=== PATIENT | male | born 1985 | race African-American/Black ===

== ENCOUNTER → 2021-03-22 | Emergency (ER) | payer MEDICARE, OTHER ==
[~2021-03-22] VITALS: Ht 177.8 cm; Wt 80.7 kg
[~2021-03-22] MED LIST: HYDR-3972 PO; HYDROCODONE/APAP 5/325MG TABLET ONE; HYDROCODONE/APAP 5/325MG TABLET PO ONE; IBUP-1957 PO; IBUPROFEN 600 MG TABLET ONE; IBUPROFEN 600 MG TABLET PO ONE
--- NOTE | 2021-03-22 23:17 | NUR ---
BROUGHT TO CT
--- NOTE | 2021-03-23 | NUR ---
URINE COLLECTED AND SENT TO LAB
--- NOTE | 2021-03-23 00:50 | NUR ---
LAB CALLED TO FOLLOW UP ON TEST RESULTS
[2021-03-23 00:58] LABS: BILIRUBIN,URINE NEGATIVE (NEGATIVE); COLOR,URINE DARK YELLOW (YELLOW); LEUKOCYTE ESTERASE ,URINE NEGATIVE (NEGATIVE); NITRITE, URINE NEGATIVE (NEGATIVE); PROTEIN,URINE NEGATIVE (NEGATIVE); UGLUCOSE NEGATIVE (NEGATIVE); UROBILINOGEN,URINE 0.2 EU/dL (0.2)
[2021-03-23 01:12] LABS: BACTERIA,URINE None seen /HPF (None Seen); RBC,URINE 0-2 /HPF (0-2); SQUAMOUS EPITHELIAL CELL,UR Few /HPF (None Seen); WBC,URINE 0-2 /HPF (0-3)
[2021-03-23 01:13] LABS: CALCIUM OXALATE CRYSTALS,UR Many /HPF (None Seen)
--- NOTE | 2021-03-23 02:15 | NUR ---
Patient discharged to home in stable condition. Written and verbal after care instructions given. Patient verbalizes understanding of instruction.
[2021-03-23 02:16] VITALS: BP 140/80
== END | disposition home or self-care (01) ==
LOC: ER 22:32
DX: S39.012A Strain of muscle, fascia and tendon of lower back, initial encounter (principal); S80.01XA Contusion of right knee, initial encounter; S60.222A Contusion of left hand, initial encounter; V49.9XXA Car occupant (driver) (passenger) injured in unspecified traffic accident, initial encounter; Y93.89 Activity, other specified; Y92.410 Unspecified street and highway as the place of occurrence of the external cause; Y99.8 Other external cause status
CPT/HCPCS: 72131-TC; 73564-TC; 81001

== ENCOUNTER 2021-03-24 02:31 | Emergency (ER) | payer MEDICARE, OTHER ==
[~2021-03-24] VITALS: Ht 177.8 cm; Wt 79.4 kg
[~2021-03-24 02:31] MED LIST changes: -HYDROCODONE/APAP 5/325MG TABLET ONE; -HYDROCODONE/APAP 5/325MG TABLET PO ONE; -IBUPROFEN 600 MG TABLET ONE; -IBUPROFEN 600 MG TABLET PO ONE
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
[2021-03-24 05:07] VITALS: BP 124/86
--- NOTE | 2021-03-24 05:07 | NUR ---
MEDICALLY STABLE FOR D/C. Patient discharged to home in stable condition. Written and verbal after care instructions given. Patient verbalizes understanding of instruction.
== END 2021-03-24 05:09 | disposition home or self-care (01) ==
LOC: ER 02:31
DX: S06.0X0A Concussion without loss of consciousness, initial encounter (principal); S60.221A Contusion of right hand, initial encounter; S80.02XA Contusion of left knee, initial encounter; Z60.2 Problems related to living alone; V49.49XA Driver injured in collision with other motor vehicles in traffic accident, initial encounter; Y93.89 Activity, other specified; Y92.413 State road as the place of occurrence of the external cause; Y99.8 Other external cause status
CPT/HCPCS: 70450-TC; 72125-TC; 73130-TC; 73564-TC

== ENCOUNTER → 2021-05-30 | Emergency (ER) | payer MEDICARE, OTHER ==
[~2021-05-30] VITALS: Ht 177.8 cm; Wt 81.6 kg
[~2021-05-30] MED LIST changes: +PENICILLIN G BENZATHINE 2.4 MMU/4 ML ML IM ONE
--- NOTE | 2021-05-30 06:41 | NUR ---
TO ER BED 11. BIBSELF FROM HOME C/O SYPHYLLIS, TESTED 2 DAYS AGO. REQUESTING FOR ANTIBIOTICS. AWAITING MD OCHOA
[2021-05-30 07:11] VITALS: BP 122/73
--- NOTE | 2021-05-30 07:11 | NUR ---
Patient discharged to home in stable condition. Written and verbal after care instructions given. Patient verbalizes understanding of instruction.
== END | disposition home or self-care (01) ==
LOC: ER 05:30
DX: A53.9 Syphilis, unspecified (principal); Z60.2 Problems related to living alone
CPT/HCPCS: 96372; 99283; J0558

== ENCOUNTER 2021-07-25 11:53 | Emergency (ER) | payer MEDICARE, OTHER ==
[~2021-07-25] VITALS: Ht 177.8 cm; Wt 81.6 kg
[~2021-07-25 11:53] MED LIST changes: -PENICILLIN G BENZATHINE 2.4 MMU/4 ML ML IM ONE
--- NOTE | 2021-07-25 12:06 | NUR ---
TO ER BED 10, BIB SELF C/O SHARP CHEST PAIN AND L UPPER ABDOMINAL PAIN X 5 DAYS. AAOX3, BREATHING EVEN AND NON LABORED, CONNECTED TO MONITOR, AWAITING MD OCHOA
--- NOTE | 2021-07-25 12:10 | NUR ---
URINE COLLECTED AND SENT TO LAB
[2021-07-25] MEDS ORDERED: MAG HYDROX/AL HYDROX/SIMETH 30 ML UDC ONE (12:22)
[2021-07-25] MEDS ORDERED: PANTOPRAZOLE 40 MG VIAL ONE (12:22)
[2021-07-25] MEDS ORDERED: LIDOCAINE VISCOUS 2% UD 15 ML UDC ONE (12:23)
[2021-07-25] MEDS ORDERED: PANTOPRAZOLE 40 MG VIAL IV ONE (12:30)
[2021-07-25] MEDS ORDERED: MAG HYDROX/AL HYDROX/SIMETH 30 ML UDC PO ONE (12:30)
[2021-07-25] MEDS ORDERED: LIDOCAINE VISCOUS 2% UD 15 ML UDC MM ONE (12:30)
[2021-07-25 12:38] LABS: BASOPHILS % (AUTO) 0.4 % (0.0-2.0); CALCIUM, SERUM 8.3 mg/dL (8.5-10.1); CARBON DIOXIDE 26 mmol/L (21-32); CHLORIDE 106 mmol/L (98-107); EOSINOPHILS % (AUTO) 1.1 % (0.0-6.0); GLUCOSE 97 mg/dL (74-106); HEMATOCRIT 43 % (39-51); HEMOGLOBIN 14.5 g/dL (13.5-17.5); LYMPHOCYTES % (AUTO) 23.3 % (20.0-44.0); MEAN CORPUSCULAR HGB CONC 34 g/dl (31.0-36.0); MEAN CORPUSCULAR VOLUME 97 fL (80-96); MONOCYTES # (AUTO) 0.3 K/uL (0.1-1.30); MONOCYTES % (AUTO) 7.8 % (2.0-12.0); NEUTROPHILS % (AUTO) 67.4 % (43.0-81.0); PLATELET COUNT (AUTO) 233 K/uL (150-450); POTASSIUM 3.8 mmol/L (3.5-5.1); RED BLOOD CELL COUNT(AUTO) 4.44 MIL/uL (4.5-6.0); SODIUM SERUM 139 mmol/L (136-145); UREA NITROGEN, BLOOD 12 mg/dL (7-18); WHITE BLOOD COUNT (AUTO) 4.4 K/uL (4.3-11.0)
[2021-07-25 12:39] LABS: BILIRUBIN,URINE NEGATIVE (NEGATIVE); COLOR,URINE YELLOW (YELLOW); LEUKOCYTE ESTERASE ,URINE NEGATIVE (NEGATIVE); NITRITE, URINE NEGATIVE (NEGATIVE); PH,URINE 6.5 (5.0-8.0); PROTEIN,URINE NEGATIVE (NEGATIVE); UGLUCOSE NEGATIVE (NEGATIVE); UROBILINOGEN,URINE 0.2 EU/dL (0.2)
[2021-07-25 12:44] LABS: ALANINE AMINOTRANSFERASE 21 U/L (12-78); ALKALINE PHOSPHATASE 78 U/L (46-116); ASPARTATE AMINOTRANSFERASE 15 U/L (15-37); BILIRUBIN,DIRECT 0.2 mg/dL (0.0-0.2); BILIRUBIN,TOTAL 1.3 mg/dL (0.2-1.0); LIPASE 53 U/L (73-393); TOTAL PROTEIN, SERUM 7.3 g/dL (6.4-8.2)
[2021-07-25] MEDS ORDERED: PANT40TA2 PO (13:09)
--- NOTE | 2021-07-25 13:38 | NUR ---
TAKEN TO CT VIA ASHLEE
--- NOTE | 2021-07-25 14:24 | NUR ---
SS Note: SW was requested to speak with pt. regarding outpatient resources. Pt. Is a 35-year-old male who demonstrates adequate insight to the reason for hospitalization. Per pt., he presents to the ER for having multiple panic attacks. Pt. was oriented x3, alert, and cooperative. During interview, pt. was capable of following directions and appeared groomed. Pt.'s speech was at a normal rate and pt.'s mood was elevated. Pt. reported no hx of mental health, substance abuse, suicidal ideation, or homicidal ideation. Pt. denies auditory hallucinations, visual hallucinations, paranoia, or delusions. SW explored pt.'s living situation. Per pt., he lives alone [[address] [place] [address]]. Pt. has anxiety that started couple months ago due to personal issues. Per pt., his panic attacks have got worst this week. Pt. expressed that he wants resources regarding psychiatrist outpatient. Plan: SW provided available counseling/psychiatrist resources and pt. accepted. Resources Provided: Counseling--Outpatient Located Within [facility] [address], [facility] [place] [address] (Specializes in in-depth psychotherapy for emotional distress: anxiety, depression, interpersonal conflicts, life transitions, childhood abuse) [facility] [address] [place] [address] (Assist with solving problem marital difficulties, separation & divorce, aging parents, & grief, chronic & terminal illness) [facility] [address] [place] [address] (Deal with loss & grief, anxiety, marital difficulties) [facility] [address], [address] [place] [address] (Provide in-home mental services to people who are incapable of leaving their homes) [facility] [address] [facility] [address] [facility] [address] [place], [place] [id number] PSYCHIATRIC OUTPATIENT SERVICES [facility] Partial Hospitalization and Intensive Outpatient Program (Managed Care and [place] Only)[id number] [facility] [phone] [facility] Partial Hospitalization and Outpatient [id number] [place], [place] [phone] [facility] [id number] [place], [place] [phone] [facility] Partial Hospitalization and Outpatient [id number] [facility], [phone]
--- NOTE | 2021-07-25 15:39 | NUR ---
Patient discharged to home in stable condition. Written and verbal after care instructions given. Patient verbalizes understanding of instruction.
[2021-07-25 15:40] VITALS: BP 124/65
== END 2021-07-25 15:48 | disposition home or self-care (01) ==
LOC: ER 12:01
DX: R07.89 Other chest pain (principal); R10.13 Epigastric pain; Z60.2 Problems related to living alone; Z79.899 Other long term (current) drug therapy
CPT/HCPCS: 36415; 71045-TC; 76700-TC; 80048-TC; 80076-TC; 83690-TC; 84484-TC; 85025-TC; C9113

== ENCOUNTER 2022-11-14 06:07 | Emergency (ER) | payer MEDICARE, OTHER ==
[~2022-11-14] VITALS: Ht 177.8 cm; Wt 95.3 kg
[~2022-11-14 06:07] MED LIST changes: +PANT40TA2 PO
[2022-11-14] MEDS ORDERED: LIDOCAINE 1%-EPI 1:100,000 20 ML VIAL ONE (06:39)
[2022-11-14] MEDS ORDERED: SULFAMETH/TRIMETH 800/160 MG 1 UDTAB TABLET ONE (06:49)
[2022-11-14] MEDS ORDERED: ONDANSETRON HCL/PF - ER 4 MG/2 ML VIAL IV ONE (07:00)
[2022-11-14] MEDS ORDERED: MIDAZOLAM HCL 2 MG/2ML VIAL IV ONE ×2 (07:00→08:00)
[2022-11-14] MEDS ORDERED: KETAMINE HCL(200MG/20ML) 10 MG/ML VIAL IV ONE (07:00)
[2022-11-14] MEDS ORDERED: SULFAMETH/TRIMETH 800/160 MG 1 UDTAB TABLET PO ONE (07:00)
[2022-11-14] MEDS ORDERED: ONDANSETRON HCL/PF 4 MG/2 ML VIAL ONE (07:05)
[2022-11-14] MEDS ORDERED: KETAMINE HCL (500MG/10ML) 50 MG/ML VIAL ONE (07:06)
[2022-11-14] MEDS ORDERED: MIDAZOLAM HCL 2 MG/2ML VIAL ONE (07:06)
[2022-11-14] MEDS ORDERED: SULF1TAB48 PO (08:02)
[2022-11-14] MEDS ORDERED: HYDROCODONE/APAP 10/325MG TABLET ONE (08:13)
[2022-11-14] MEDS ORDERED: HYDR-3973 PO (08:20)
[2022-11-14] MEDS ORDERED: HYDROCODONE/APAP 10/325MG TABLET PO ONE (08:30)
[2022-11-14 10:13] VITALS: BP 139/71; TEMP 98.3; O2SAT 100
== END 2022-11-14 10:13 | disposition home or self-care (01) ==
LOC: ER 06:21
DX: L02.412 Cutaneous abscess of left axilla (principal); L02.411 Cutaneous abscess of right axilla; Z60.2 Problems related to living alone
CPT/HCPCS: 99285; 10061; 96374; 99152; J2405; J2250; J3490; G0500

== ENCOUNTER 2024-11-03 12:43 | Emergency (ER) | payer OTHER ==
[~2024-11-03] VITALS: Ht 175.3 cm; Wt 72.6 kg
[~2024-11-03 12:43] MED LIST changes: +HYDR-3973 PO; +SULF1TAB48 PO
[2024-11-03 13:48] LABS: PLATELET COUNT (AUTO) 179 K/uL (150-450); RED BLOOD CELL COUNT(AUTO) 4.42 MIL/uL (4.5-6.0); RED CELL DISTRIBUTION WIDTH 16.9 % (11.5-15.0); WHITE BLOOD COUNT (AUTO) 5.3 K/uL (4.3-11.0)
[2024-11-03 13:58] LABS: CALCIUM, SERUM 8.6 mg/dL (8.5-10.1); CREATININE 1.1 mg/dL (0.6-1.3); SODIUM SERUM 141.0 mmol/L (136-145); UREA NITROGEN, BLOOD 11.0 mg/dL (7-18)
[2024-11-03 14:01] LABS: INR 1.06 (0.91-1.10)
[2024-11-03 14:09] LABS: ASPARTATE AMINOTRANSFERASE 461.0 U/L (15-37); TOTAL PROTEIN, SERUM 6.9 g/dL (6.4-8.2)
[2024-11-03 16:30] VITALS: BP 131/86; TEMP 98.4; O2SAT 99
== END 2024-11-03 16:31 | disposition home or self-care (01) ==
LOC: ER 12:53
DX: B19.20 Unspecified viral hepatitis C without hepatic coma (principal); Z79.1 Long term (current) use of non-steroidal anti-inflammatories (NSAID); Z79.899 Other long term (current) drug therapy; Z60.2 Problems related to living alone
CPT/HCPCS: 36415; 76705-TC; 80048-TC; 80076-TC; 85025-TC; 85730-TC